=== PATIENT | female | born 1970 | race Caucasian/White ===

== ENCOUNTER 2018-09-12 11:06 | Inpatient (IN) | payer MEDICAID ==
[~2018-09-12] VITALS: Ht 121.9 cm; Wt 84.5 kg
[2018-09-12] MEDS ORDERED: LYR75C PO (11:32)
[2018-09-12] MEDS ORDERED: CLON-527 PO (11:32)
[2018-09-12] MEDS ORDERED: TEN1T PO (11:32)
[2018-09-12] MEDS ORDERED: INSU100V10 SQ (11:32)
[2018-09-12] MEDS ORDERED: OMEP20CA10 PO (11:32)
[2018-09-12] MEDS ORDERED: ALBU8HFA PO (11:32)
[2018-09-12] MEDS ORDERED: SUCR1TAB34 PO (11:32)
[2018-09-12] MEDS ORDERED: ACET600C PO (11:32)
[2018-09-12] MEDS ORDERED: INSU100I31 SQ (11:32)
[2018-09-12] MEDS ORDERED: METF500T PO (11:32)
[2018-09-12] MEDS ORDERED: SITA100T11 PO (11:32)
[2018-09-12] MEDS ORDERED: ONDA4TAB12 PO (11:32)
[2018-09-12] MEDS ORDERED: NITR0.4T51 SL (11:32)
[2018-09-12] MEDS ORDERED: RISP2TAB97 PO (11:32)
[2018-09-12] MEDS ORDERED: TRAZ-219 PO (11:32)
[2018-09-12] MEDS ORDERED: NYSPWD TP (11:32)
[2018-09-12] MEDS ORDERED: BENZ0.5T4 PO (11:32)
[2018-09-12] MEDS ORDERED: FLUT1DIS4 INH (11:32)
[2018-09-12] MEDS ORDERED: metoprolol PO (11:32)
[2018-09-12] MEDS ORDERED: EXEN5PEN2 PO (11:32)
[2018-09-12] MEDS ORDERED: ATOR40TA PO (11:32)
[2018-09-12] MEDS ORDERED: CHOL50004 PO (11:32)
[2018-09-12] MEDS ORDERED: TIOT18CA3 INH (11:32)
[2018-09-12] MEDS ORDERED: AMLO5TAB4 PO (11:32)
[2018-09-12] MEDS ORDERED: SERT100T10 PO (11:32)
[2018-09-12] MEDS ORDERED: MAGN400C PO (11:32)
[2018-09-12] MEDS ORDERED: FERR325T28 PO (11:32)
[2018-09-12] MEDS ORDERED: loperamide 2mg capsule PO PRN (11:40)
[2018-09-12] MEDS ORDERED: LORazepam 1 MG tablet PO PRN (11:40)
[2018-09-12] MEDS ORDERED: mag hydrox/Alum hydrox/simeth 30ml oral suspension PO PRN (11:40)
[2018-09-12] MEDS ORDERED: tuberculin, purif. prot. deriv. 5 units/0.1ml ID ONE (11:40)
[2018-09-12] MEDS ORDERED: acetaminophen 325mg tablet PO PRN (11:40)
[2018-09-12] MEDS ORDERED: magnesium hydroxide 30ml (MOM) UD suspension PO PRN (11:40)
[2018-09-12] MEDS ORDERED: hydrOXYzine 25 MG tablet PO PRN (11:40)
[2018-09-12] MEDS ORDERED: dextrose ORAL solution 15 GM/59 ML bottle PO PRN ×2 (12:00)
[2018-09-12] MEDS ORDERED: glucagon, human recombinant 1mg kit SUBCUT PRN (12:00)
[2018-09-12] MEDS ORDERED: ondansetron 4mg rapidly disintigrating tab PO PRN (12:00)
[2018-09-12] MEDS ORDERED: INSULIN GLULISINE 100 UNIT SQ SCH (12:00)
[2018-09-12] MEDS ORDERED: dextrose 50%-water 50ml dispensing syringe IV PRN ×2 (12:00)
[2018-09-12] MEDS ORDERED: MESSAGE TO PHARMACY PO ONE (12:00)
[2018-09-12 12:15] VITALS: BP 113/61
[2018-09-12] MEDS ORDERED: albuterol 2.5 MG/3 ML nebule NEB PRN (12:40)
[2018-09-12] MEDS: nystatin 15 GM powder TP SCH ×2 (12:48→21:19)
[2018-09-12] MEDS: nicotine 21mg patch - 24 hr TD SCH (12:49)
[2018-09-12] MEDS ORDERED: clonazePAM 1mg tablet PO SCH (13:00)
[2018-09-12] MEDS: insulin Lispro (HumaLOG) vial - multi-dose SQ SCH ×2 (13:35→18:19)
[2018-09-12] MEDS: sucralfate 1 gm tablet PO SCH ×2 (13:39→21:19)
[2018-09-12] MEDS: risperiDONE 2mg tablet PO SCH ×2 (13:39→21:18)
[2018-09-12 14:23] LABS: ALANINE AMINOTRANSFERASE 22 U/L (12-78); ALBUMIN 3.3 G/DL (3.4-5.0); ALBUMIN/GLOBULIN RATIO 0.9 (1.1-1.5); ALKALINE PHOSPHATASE 88 IU/L (46-116); ANION GAP 2 (8-16); ASPARTATE AMINO TRANSFERASE 15 U/L (10-37); BILIRUBIN,TOTAL 0.2 MG/DL (0.1-1.0); BLOOD UREA NITROGEN 18 MG/DL (7-18); BUN/CREATININE RATIO 23.1 (6.6-38.0); CALCIUM 9.4 MG/DL (8.5-10.1); CHLORIDE 102 MMOL/L (99-107); CREATININE 0.78 MG/DL (0.40-0.90); GLUCOSE 223 MG/DL (70-104); POTASSIUM 4.1 MMOL/L (3.5-5.1); SODIUM 138 MMOL/L (135-145); TOTAL CARBON DIOXIDE 34.5 MMOL/L (24-32); TOTAL PROTEIN 7.1 G/DL (6.4-8.2); eGFR 79 ML/MIN
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
[2018-09-12] MEDS ORDERED: albuterol 2.5 MG/3 ML nebule NEB SCH (15:00)
[2018-09-12] MEDS ORDERED: ipratropium 0.5 MG/2.5ML nebule IH SCH (15:00)
[2018-09-12] MEDS: ipratropium/albuterol 3ml nebule IH SCH ×2 (15:00→21:03)
--- NOTE | 2018-09-12 16:11 | NUR ---
Nursing Progress Note: Legal hold: 5150 Client on involuntary status for DTS Report received from nurse, Alberto LUTZ, with use of SBAR Why are they here: Pt admitted to [facility] for depression today. Pt on a 5150 for a DTS. She stated, "hearing voices of men telling her to kill herself." Pt made a plan to cut herself with razor. Assessment What has happened this shift: Pt oriented to the unit. Admission completed Med rec completed, pt oriented to the unit, pt cooperative with the admission process. S/I, H/I:denies A/VH:denies Sleep: slept for the rest of the shift right after the admission process ADL's:Poor Group attendance:No Were meds taken:Yes Any med S/E: None noted or reported Mental Status Exam Appearance: short elderly obese unkempt woman in green scrubs Eye contact:fair Behavior:Calm Speech:pressured Mood:cooperative Affect:blunted Thought process:tired and wants to go to sleep Thought Content:wants to sleep Cognition:depressed Insight:poor Judgment:poor Interventions PRN's used:N/A Therapeutic interventions:provided therapeutic communication and listening, administered/educated/monitored medications, encouraged a shower, change of clothes and attendance of afternoon group, q15min safety checks. Restraints/seclusion/emergency medication:N/A Justification of Continued Inpatient Treatment:Pt admitted today for DTS due to suicidial ideation with a plan to use a razor to cut herself. Pt is depressed with feelings of hopelessness.
[2018-09-12] MEDS: pregabalin 75mg capsule PO SCH (16:38)
[2018-09-12] MEDS ORDERED: EXENATIDE PO SCH (20:00)
[2018-09-12] MEDS ORDERED: insulin glargine (Lantus) pen - multi-dose SQ SCH (20:00)
[2018-09-12] MEDS ORDERED: non-formulary drug (Magnesium Oxide (Magnesium) 2 CAP) PO SCH (20:00)
[2018-09-12] MEDS: metoprolol tartrate 25mg tablet PO SCH (20:00)
[2018-09-12] MEDS ORDERED: ACETYLCYSTEINE PO SCH (20:00)
[2018-09-12 20:45] VITALS: BP 90/56
[2018-09-12] MEDS: guanFACINE 1 mg tablet PO SCH (20:59)
[2018-09-12] MEDS: traZODone 50mg tablet PO SCH (20:59)
[2018-09-12] MEDS: insulin glargine (Lantus) pen - multi-dose SQ SCH (21:00)
[2018-09-12] MEDS: budesonide 0.5mg/2ml UD nebule IH SCH (21:03)
[2018-09-12] MEDS: atorvastatin 20mg tablet PO SCH (21:17)
[2018-09-12] MEDS: metFORMIN 500mg tablet PO SCH (21:17)
[2018-09-12] MEDS: magnesium oxide 400mg tablet PO SCH (21:18)
[2018-09-12] MEDS: ferrous sulfate 325mg tablet PO SCH (21:18)
[2018-09-12] MEDS: benztropine 1mg tablet PO SCH (21:19)
--- NOTE | 2018-09-12 23:01 | NUR ---
Nursing Progress Note: Legal hold: 5150 Client on involuntary status for DTS Report received from nurse, Alberto LUTZ, with use of SBAR Why are they here: Pt admitted to [facility] for depression today. Pt on a 5150 for a DTS. She stated, "hearing voices of men telling her to kill herself." Pt made a plan to cut herself with razor. Assessment What has happened this shift: Pt sleeping during change of shift; pt kept falling asleep during 1:1, stating "I haven't been sleeping well". Pt verbalized SI with plan to use a razor blade to cut her wrists but did not offer other information during the conversation and insisted on going back to sleep. Med compliant but RN held Lopressor and Tenex due to BP not meeting parameters, Trazadone held due to pt's sleepy state, and Lantus held due to metformin being administered and RN wanting to see AM glucose after this evening oral glucose since pt has not been on insulin protocol. Pt went back to sleep after medications administered. S/I, H/I: + for SI with plan to use razor blade on wrists A/VH:Denies Sleep: See Sleep Charting Hours ADL's: Needs reinforcement, Needs shower Group attendance: N Were meds taken:Y Any med S/E: None noted or reported Mental Status Exam Appearance: short elderly obese unkempt woman in green scrubs and nonskid socks Eye contact: Intermittent Behavior: Asleep, fatigued Speech: Slow, WNL Mood: Cooperative Affect: Flat Thought process: Wants to sleep "I haven't been sleeping good" Thought Content: Unable to determine due to pt being Cognition: A&Ox3 Insight: Poor Judgment: Poor Interventions PRN's used: N/A Therapeutic interventions:provided therapeutic communication and listening, administered/educated/monitored medications, encouraged a shower, q15min safety checks. Restraints/seclusion/emergency medication:N/A Justification of Continued Inpatient Treatment:Pt admitted today for DTS due to suicidal ideation with a plan to use a razor to cut herself. Pt is depressed with feelings of hopelessness.
[2018-09-13] MEDS: ipratropium/albuterol 3ml nebule IH SCH ×4 (02:05→21:45)
[2018-09-13] MEDS: sucralfate 1 gm tablet PO SCH ×4 (02:07→20:47)
[2018-09-13] MEDS: pantoprazole 40mg Tablet.DR PO SCH (07:03)
[2018-09-13 07:33] LABS: CHOL/HDL RATIO 3.2 (0.00-4.99); CHOLESTEROL 114 MG/DL (0-200); HDL CHOLESTEROL 36 MG/DL (35-60); LDL CHOLESTEROL 64 MG/DL (50-100); TRIGLYCERIDES 141 MG/DL (20-135)
[2018-09-13 07:39] VITALS: BP 104/64
[2018-09-13] MEDS: benztropine 1mg tablet PO SCH ×2 (07:59→20:48)
[2018-09-13] MEDS: vitamin D (cholecalciferol) 1,000 unit tablet PO SCH (08:00)
[2018-09-13] MEDS: nicotine 21mg patch - 24 hr TD SCH (08:01)
[2018-09-13] MEDS: amLODIPine 5mg tablet PO SCH (08:01)
[2018-09-13] MEDS: risperiDONE 2mg tablet PO SCH ×3 (08:01→20:51)
[2018-09-13] MEDS: metoprolol tartrate 25mg tablet PO SCH ×2 (08:02→20:00)
[2018-09-13] MEDS: sertraline 50mg tablet PO SCH (08:02)
[2018-09-13] MEDS: pregabalin 75mg capsule PO SCH ×3 (08:02→17:07)
[2018-09-13] MEDS: ferrous sulfate 325mg tablet PO SCH ×2 (08:02→20:52)
[2018-09-13] MEDS: metFORMIN 500mg tablet PO SCH (08:02)
[2018-09-13] MEDS: magnesium oxide 400mg tablet PO SCH ×2 (08:03→20:53)
[2018-09-13] MEDS: insulin Lispro (HumaLOG) vial - multi-dose SQ SCH ×3 (08:14→18:13)
[2018-09-13] MEDS: budesonide 0.5mg/2ml UD nebule IH SCH ×2 (08:23→21:45)
[2018-09-13] MEDS: nystatin 15 GM powder TP SCH ×3 (08:28→21:12)
--- NOTE | 2018-09-13 08:30 | NUR ---
Pt c/o of chest pain 8/10 w/pain radiating down her right arm. VS 123/63, HR 79, O2 96%, RR 16. 0845 Nitro 1st tab 0850 VS 104/55, HR 89, O2 94% Pain 8/10 0850 Nitro 2nd tab 0855 VS 84/47, HR 82 O2 93% Pain 8/10 no pain in right arm Pt states, "she always has chest pain and has Nitro due to CHF and Angina." Pt has a non-productive cough she is on respiratory treatments q 6 hrs. SEE eMAR Addendum: 09/13/18 at 0938 by Marcia Her RN VS 110/60, HR 70, O2 97%, Pain 7/10 No pain in right arm.
[2018-09-13] MEDS: nitroGLYCERIN 0.4mg SUBLingual tab SL PRN ×2 (08:44→08:51)
[2018-09-13] MEDS: acetaminophen 325mg tablet PO PRN ×2 (09:44→19:29)
--- NOTE | 2018-09-13 11:59 | NUR ---
Nursing Progress Note Legal hold: 5150 Client on involuntary status for DTS Report received from nurse, Alberto LUTZ, with use of SBAR Why are they here: Pt admitted to [facility] for depression. Pt on a 5150 for a DTS. She stated, "hearing voices of men telling her to kill herself." Pt made a plan to cut herself with razor. Assessment What has happened this shift: Start of shift pt in the dining room drinking coffee with a hot chocolate pk mixed in the coffee. Provided diabetic education regarding obtaining blood sugars ac and carb controlled diet. After breakfast pt c/o pain in chest and right arm SEE PROGRESS NOTE. Pt then seen by Dr. Alejandro. During their assessment pt told Dr. Alejandro she takes "Widen 10's." This nurse called pt's current pharmacy, [facility] in [place]. Per current pharmacist pt is not prescribed any Widen. On July 02 this year she received 10 tablets from the [place] [facility]. This information was given to Dr. Alejandro and the pt. Pt then c/o diarrhea and was given Loperamide HCL 2mg. S/I, H/I:denies A/VH:denies Sleep: Naps on and off during the shift ADL's:Poor Group attendance:Yes Were meds taken:Yes Any med S/E: None noted or reported Mental Status Exam Appearance: short elderly obese unkempt woman in green scrubs Eye contact:Fair Behavior:Calm Speech:pressured Mood:cooperative, depressed Affect: depressed, flat Thought process: tired and wants to go to sleep Thought Content: Perseverates on pain on and off Cognition: depressed Insight: poor Judgment: poor Interventions PRN's used:Tylenol Therapeutic interventions:provided therapeutic communication and active listening, administered/provided education/monitored medications, encouraged a shower, change of clothes and attendance of afternoon group, q15min safety checks. Restraints/seclusion/emergency medication:N/A Justification of Continued Inpatient Treatment:Pt admitted today for DTS due to suicidial ideation with a plan to use a razor to cut herself. Pt is depressed with feelings of hopelessness.
[2018-09-13] MEDS ORDERED: iohexol 350MG/ML 100ml bottle IV ONE (14:49)
[2018-09-13] MEDS: MESSAGE TO NURSING PO NR (15:00)
[2018-09-13 20:02] VITALS: BP 105/55
[2018-09-13] MEDS: atorvastatin 20mg tablet PO SCH (20:50)
[2018-09-13] MEDS: guanFACINE 1 mg tablet PO SCH (20:59)
[2018-09-13] MEDS: traZODone 50mg tablet PO SCH (20:59)
[2018-09-13] MEDS: insulin glargine (Lantus) pen - multi-dose SQ SCH (21:11)
--- NOTE | 2018-09-14 01:23 | NUR ---
Nursing Progress Note Legal hold: 5150 Client on involuntary status for DTS Report received from nurse, Alberto LUTZ, with use of SBAR Why are they here: Pt admitted to [facility] for depression. Pt on a 5150 for a DTS. She stated, "hearing voices of men telling her to kill herself." Pt made a plan to cut herself with razor. Assessment What has happened this shift: Pt in watching TV at change of shift. During 1:1, pt stated she doesn't feel suicidal but hears voices telling her to harm herself "I just try to ignore them". Pt stated she is "very tired" and "just wants to sleep." Pt med compliant, IV removed, Nicotine patch removed and spent some time in the group room before turning in to bed around 2100. S/I, H/I: Denies A/VH: +AH, voices are "negative and tell me to harm myself" Sleep: See Sleep Hour Charting ADL's: Poor; Encouraged pt to shower (declined), suggested AM shower Group attendance: Y- HS Snack Were meds taken: Y - Lopressor, Tenex, Metformin, and Trazodone held Any med S/E: None noted or reported Mental Status Exam Appearance: short elderly obese unkempt woman in green scrubs, whom looks older than chronological age Eye contact: Intermittent Behavior: Calm, watching TV, sitting in the group room Speech: Slow, WNL Mood: "I feel sad" Affect: Flat Thought process: tired and wants to go to sleep Thought Content: Perseverates on pain on and off, wanting to sleep Cognition: A&Ox3 Insight: Poor Judgment: Poor Interventions PRN's used: Tylenol Therapeutic interventions:provided therapeutic communication and active listening, administered/provided education/monitored medications, encouraged a shower, change of clothes and attendance of afternoon group, q15min safety checks. Restraints/seclusion/emergency medication:N/A Justification of Continued Inpatient Treatment:Pt admitted for suicidal ideation with a plan to use a razor to cut herself. Pt is depressed and hearing voices telling her to harm herself.
[2018-09-14] MEDS: sucralfate 1 gm tablet PO SCH ×4 (02:00→20:20)
[2018-09-14] MEDS: ipratropium/albuterol 3ml nebule IH SCH ×4 (03:00→22:17)
[2018-09-14 07:38] VITALS: BP 115/54
[2018-09-14] MEDS: pantoprazole 40mg Tablet.DR PO SCH (07:45)
[2018-09-14] MEDS: magnesium oxide 400mg tablet PO SCH ×2 (07:46→20:20)
[2018-09-14] MEDS: risperiDONE 2mg tablet PO SCH ×3 (07:46→20:21)
[2018-09-14] MEDS: sertraline 50mg tablet PO SCH (07:47)
[2018-09-14] MEDS: metoprolol tartrate 25mg tablet PO SCH ×2 (07:47→20:22)
[2018-09-14] MEDS: lisinopril 2.5mg tablet PO SCH (07:47)
[2018-09-14] MEDS: amLODIPine 5mg tablet PO SCH (07:48)
[2018-09-14] MEDS: ferrous sulfate 325mg tablet PO SCH ×2 (07:48→20:20)
[2018-09-14] MEDS: pregabalin 75mg capsule PO SCH ×4 (07:49→20:21)
[2018-09-14] MEDS: vitamin D (cholecalciferol) 1,000 unit tablet PO SCH (07:50)
[2018-09-14] MEDS: nicotine 21mg patch - 24 hr TD SCH (07:50)
[2018-09-14] MEDS: benztropine 1mg tablet PO SCH ×2 (08:01→20:20)
[2018-09-14] MEDS: budesonide 0.5mg/2ml UD nebule IH SCH ×2 (08:29→22:16)
[2018-09-14] MEDS: insulin Lispro (HumaLOG) vial - multi-dose SQ SCH ×3 (08:31→17:55)
[2018-09-14] MEDS: nystatin 15 GM powder TP SCH ×3 (09:01→21:27)
[2018-09-14] MEDS: acetaminophen 325mg tablet PO PRN ×2 (09:03→19:45)
[2018-09-14] MEDS: MESSAGE TO NURSING PO NR (10:06)
[2018-09-14] MEDS: clonazePAM 1mg tablet PO PRN ×2 (10:43→19:43)
--- NOTE | 2018-09-14 12:04 | NUR ---
1:1 DISCHARGE PLANNING SW provided update to Katherine at [facility] ([phone]) regarding pt tx and current presentation of sx. BONILLA GarnerW
--- NOTE | 2018-09-14 12:38 | NUR ---
DM consult: A1C 10.9. Pt 5150 admit w/ suicidal voices telling her to kill herself. PO 100% carb controlled meals w/ GLU 198 down from 251 on admit. LBM 09/13. Not appropriate for DM ed at this time. Will continue to monitor. Rec: 1. continue carb controlled diet 2. wt per rx Addendum: 09/14/18 at [address] Amended: Links added. Addendum: 09/15/18 at [address] DM consult: A1C 10.9. Pt 5150 admit SI. PO 100% carb controlled meals w/ GLU 198 down from 251 on admit. LBM 09/13. Not appropriate for DM ed at this time. Will continue to monitor.
[2018-09-14] MEDS ORDERED: linagliptin 5mg tablet PO SCH (14:04)
--- NOTE | 2018-09-14 17:00 | NUR ---
Nursing Progress Note Legal hold: 5150 Client on involuntary status for DTS Report received from nurse, Cindy LUTZ, with use of SBAR Why are they here: Pt admitted to [place] [facility] for depression. Pt on a 5150 for a DTS. She stated, "hearing voices of men telling her to kill herself." Pt made a plan to cut herself with razor. Assessment What has happened this shift: Pt. awake at start of shift. Pt.'s BG checked and was 229. Pt. is a level 4 of the Hyperglycemic protocol. Pt. ate breakfast and took medications and given 15 units humolog. Pt. c/o chest pain rated 8/10, pt. had cardiac workup yesterday and troponin was negative. Pt. concerned that her anxiety medication has been decreased. Pt. given Ativan 1mg po. Pt. went to morning group. was napping frequently in the morning. Pt.'s blood sugar was 198 at lunch time and pt. moved up to level 5 on the hyper glycemic protocol. Pt. did not go to afternoon group. Pt.'s CT of head came back negative. Blood sugar was 188 at 1700. Pt.'s blood sugar was 188 at 1700. Pt. moved to level 6 on the hyperglycemic protocol. S/I, H/I: Denies A/VH: +AH, Denies Sleep: Pt. reports she slept well. Pt. napped frequently during this shift. ADL's: Encouraged pt. to shower. Pt. said she will. Group attendance: N Were meds taken: Y Any med S/E: None noted or reported Mental Status Exam Appearance: short elderly obese unkempt woman in green scrubs, whom looks older than chronological age Eye contact: Intermittent Behavior: Calm, watching TV, sitting in the group room Speech: Slow, WNL Mood: "Good" Affect: Flat Thought process: poverty of thought Thought Content: Focused on discharge and medications Cognition: A&Ox3 Insight: Poor Judgment: Poor Interventions PRN's used: Tylenol and Klonopin. Therapeutic interventions:provided therapeutic communication and active listening, administered/provided education/monitored medications, encouraged a shower, change of clothes and attendance of afternoon group, q15min safety checks. Restraints/seclusion/emergency medication:N/A Justification of Continued Inpatient Treatment:Pt admitted for suicidal ideation with a plan to use a razor to cut herself. Pt is depressed and hearing voices telling her to harm herself.
[2018-09-14] MEDS: traZODone 50mg tablet PO SCH (20:20)
[2018-09-14] MEDS: atorvastatin 20mg tablet PO SCH (20:21)
[2018-09-14 20:23] VITALS: BP 106/56
[2018-09-14] MEDS: insulin glargine (Lantus) pen - multi-dose SQ SCH (21:00)
[2018-09-14] MEDS ORDERED: insulin glargine (Lantus) pen - multi-dose SQ ONE (21:05)
--- NOTE | 2018-09-14 23:36 | NUR ---
Nursing Progress Note: Legal hold: 5150 Client on involuntary status for DTS Report received from nurse with use of SBAR: NELDA Dominguez Why are they here: Pt admitted to [facility] for depression and reports self isolation, low energy levels, decreased appetite, and insomnia. Pt placed on a 5150 for a DTS. She stated, "hearing voices of men telling her to kill herself." Pt made a plan to cut herself with razor. Pt. also reported V/DELACRUZ of animals, and had stopped taking her medication X 2 weeks. She has a hx of Bipolar D/O, multiple medical problems, and polypharmacy drug and alcohol abuse (reports she has been sober X 1 yr). Tox screen positive for marijuana. Pt. is developmentally disabled and currently lives at [facility]. She was treated for a UTI in the ER and c/o chest pain, however EKG and Troponin levels were WNL. Also, recent brain CT WNL. Assessment What has happened this shift: Assumed care of pt., pt. up in Recreation Room watching TV and interacting appropriately with others, introduced self and attempted to establish rapport. Pt. presents as cooperative, somewhat anxious, and guarded. She later requests pain medication for "chronic lung pain," which she states feels like pressure in her lungs. This literary writer auscultated pt. lung sounds, they present as clear bilaterally, with some increased aeration, pt. also has a intermittent dry cough. PRN Tylenol and Clonazepam administered and pt. also has scheduled breathing tx. She reported minimal pain relief, however able to attend snack in the Group Room and interacting/ laughing with others, will continue to monitor. Pt's BS was 82 at HS prior to snack, notified Dr. Ortiz and obtained new orders to administer 14 units of Lantus r/t elevated AM BS. also gave order to D/C Tenex per pt. hypotension X 2 nights (unable to give med because outside parameters). 1;1 completed at bedside, pt. denies S/I or depression, however states, "My anxiety is through the roof." She reports ongoing A/DELACRUZ, however she is able to ignore them. This literary writer questioned pt. about whether she attended groups today, and she reported she stayed in bed all day today. When question why she stated, "I just wasn't feeling it," this literary writer provided education about the importance of groups in order to learn coping skills and encouraged pt. to attend them tomorrow. She voiced understanding and states she will consider it. Pt. in bed with blankets pulled over head by approximately 2044, awoke to administer HS Lantus and apply Nystatin powder to pannus and bilateral groin per orders. S/I, H/I: Denies A/VH: Pt. reports ongoing A/DELACRUZ, however she is able to ignore them Sleep: Pt. reports she slept all day today and did did not go to groups. In bed by approximately 2044. ADL's: Independent, requires encouragement from staff at times Group attendance: Pt. reports she did not attend groups today and stayed in bed, when questioned why she stated, "I just wasn't feeling it." This literary writer provided education about the importance of groups in order to learning coping skills and encouraged pt. to attend them tomorrow, she voiced understanding and and will consider it. Were meds taken: Yes Any med S/E: New order to D/C Tenex per pt. hypotension X 2 nights (unable to give med because outside parameters). Mental Status Exam Appearance: Pt. presents as disheveled and older than chronological age, appropriately dressed in hospital attire. Eye contact: Good Behavior: Cooperative, somewhat anxious, and guarded Speech: Slow, soft, WNL Mood: Restless and guarded Affect: Constricted Thought process: Poverty of though in regard to mental health Thought Content: Ongoing A/H, and preoccupation/phobias regarding chronic health issues Cognition: A&O X4 Insight: Poor Judgment: Poor to fair Interventions PRN's used: Tylenol and Clonazepam Therapeutic interventions: Introduced self and attempted to establish rapport, maintained a safe and therapeutic environment, observed for changes in behavior and need for intervention, ensured contract for safety, provided medication education, monitored V/S and BS and obtained new orders as necessary, encouraged pt. independent ADL performance, provided clear and simple instructions, reoriented to reality as needed, and maintained Q 15 min safety checks. Restraints/seclusion/emergency medication: N/A Justification of Continued Inpatient Treatment: Per TRUE Summers, pt. requires further inpatient tx and a safe and therapeutic environment because she appears to be minimizing her mental maribel s/s. However, if she remains stable, he will consider discharge.
[2018-09-15] MEDS: ipratropium/albuterol 3ml nebule IH SCH ×3 (03:09→14:14)
[2018-09-15] MEDS: clonazePAM 1mg tablet PO PRN ×2 (04:48→13:39)
[2018-09-15 07:37] VITALS: BP 104/49
[2018-09-15] MEDS: sucralfate 1 gm tablet PO SCH ×2 (07:47→12:45)
[2018-09-15] MEDS: vitamin D (cholecalciferol) 1,000 unit tablet PO SCH (07:48)
[2018-09-15] MEDS: sertraline 50mg tablet PO SCH (07:48)
[2018-09-15] MEDS: metoprolol tartrate 25mg tablet PO SCH (07:49)
[2018-09-15] MEDS: benztropine 1mg tablet PO SCH (07:50)
[2018-09-15] MEDS: ferrous sulfate 325mg tablet PO SCH (07:50)
[2018-09-15] MEDS: pregabalin 75mg capsule PO SCH ×2 (07:50→12:44)
[2018-09-15] MEDS: amLODIPine 5mg tablet PO SCH (07:50)
[2018-09-15] MEDS: pantoprazole 40mg Tablet.DR PO SCH (07:51)
[2018-09-15] MEDS: risperiDONE 2mg tablet PO SCH ×2 (07:51→12:45)
[2018-09-15] MEDS: magnesium oxide 400mg tablet PO SCH (07:51)
[2018-09-15 07:52] VITALS: BP_SYST 111
[2018-09-15] MEDS: nicotine 21mg patch - 24 hr TD SCH (07:52)
[2018-09-15] MEDS: lisinopril 2.5mg tablet PO SCH (07:52)
[2018-09-15] MEDS: budesonide 0.5mg/2ml UD nebule IH SCH (08:00)
[2018-09-15] MEDS: insulin Lispro (HumaLOG) vial - multi-dose SQ SCH ×2 (08:15→13:19)
[2018-09-15] MEDS: nystatin 15 GM powder TP SCH ×2 (08:25→13:11)
[2018-09-15] MEDS: MESSAGE TO NURSING PO NR (10:20)
[2018-09-15] MEDS ORDERED: MAGN400T6 PO (11:39)
[2018-09-15] MEDS ORDERED: BENZ1TAB7 PO (11:39)
[2018-09-15] MEDS ORDERED: RISP2TAB3 PO (11:39)
[2018-09-15] MEDS ORDERED: METO25TA6 PO (11:39)
[2018-09-15] MEDS ORDERED: NYSPWD TP (11:39)
[2018-09-15] MEDS ORDERED: METF500T PO (11:39)
[2018-09-15] MEDS ORDERED: ATOR20TA66 PO (11:39)
[2018-09-15] MEDS ORDERED: NITR0.4T51 SL (11:39)
[2018-09-15] MEDS ORDERED: NOR5T PO (11:39)
[2018-09-15] MEDS ORDERED: HYDR-3686 PO (11:39)
[2018-09-15] MEDS ORDERED: LYR75C PO (11:39)
[2018-09-15] MEDS ORDERED: CHOL100046 PO (11:39)
[2018-09-15] MEDS ORDERED: TRAZ-251 PO (11:39)
[2018-09-15] MEDS ORDERED: ZOL50T PO (11:39)
[2018-09-15] MEDS ORDERED: LISI2.5T2 PO (11:39)
[2018-09-15] MEDS ORDERED: PANT40TA4 PO (11:39)
[2018-09-15] MEDS ORDERED: FER325T PO (11:39)
[2018-09-15] MEDS ORDERED: SUCR1TAB34 PO (11:39)
--- NOTE | 2018-09-15 15:50 | NUR ---
Pt. discharged to shelter [facility] with all medications. Pt. has f/u appointment on 09/20 with psychiatrist. Pt. ambulatory off of unit. Pt. denies SI/HI. A/V H and A&Ox4. Pt. calm and driven to shelter via Lyft ride. Pt. discharged with all belongings and valuables.
[2018-09-15] MEDS ORDERED: metFORMIN 500mg tablet PO SCH (20:00)
== END 2018-09-15 16:00 | disposition home or self-care (01) | DRG 750 ==
LOC: ADULT MH 11:06
PROVIDERS: ADMIT Psychiatry & Neurology Psychiatry; ATTEND Physician Assistant
DX: F25.0 Schizoaffective disorder, bipolar type (principal); R45.851 Suicidal ideations; F11.20 Opioid dependence, uncomplicated; E11.9 Type 2 diabetes mellitus without complications; Z68.43 Body mass index [BMI] 50.0-59.9, adult; E78.00 Pure hypercholesterolemia, unspecified; D64.9 Anemia, unspecified; F43.10 Post-traumatic stress disorder, unspecified; F60.9 Personality disorder, unspecified; E78.5 Hyperlipidemia, unspecified; E66.9 Obesity, unspecified; J44.9 Chronic obstructive pulmonary disease, unspecified; Z98.891 History of uterine scar from previous surgery; K21.9 Gastro-esophageal reflux disease without esophagitis; F17.210 Nicotine dependence, cigarettes, uncomplicated; I10 Essential (primary) hypertension; F12.10 Cannabis abuse, uncomplicated; G89.29 Other chronic pain; F15.10 Other stimulant abuse, uncomplicated; F44.81 Dissociative identity disorder; Z90.721 Acquired absence of ovaries, unilateral; Z76.5 Malingerer [conscious simulation]; Z88.1 Allergy status to other antibiotic agents; Z88.5 Allergy status to narcotic agent; Z88.8 Allergy status to other drugs, medicaments and biological substances; Z90.89 Acquired absence of other organs; Z98.51 Tubal ligation status; Z80.0 Family history of malignant neoplasm of digestive organs; Z80.42 Family history of malignant neoplasm of prostate; Z80.52 Family history of malignant neoplasm of bladder; Z80.8 Family history of malignant neoplasm of other organs or systems; Z79.51 Long term (current) use of inhaled steroids; Z79.4 Long term (current) use of insulin; Z79.899 Other long term (current) drug therapy; Z91.19 Patient's noncompliance with other medical treatment and regimen; Z86.73 Personal history of transient ischemic attack (TIA), and cerebral infarction without residual deficits; Z87.440 Personal history of urinary (tract) infections; Z86.711 Personal history of pulmonary embolism
CPT/HCPCS: 36415; 70470; 80053; 80061; 82948; 83036; 84484; 87070; 93005; 94640; 94760; 99285; J1815; J7626; Q9967